=== PATIENT | male | born 1950 | race Caucasian/White ===

== ENCOUNTER 2021-05-09 10:21 | Day surgery (SDC) | payer MEDICARE, OTHER ==
[2021-05-06 11:10] VITALS: BMI 39.4
[2021-05-09] MEDS ORDERED: Lidocaine 1% MPF 2 ML VIAL ONE (10:40)
[2021-05-09] MEDS ORDERED: Oxymetazoline HCl 0.05% ( 15 ML ) ONE (10:40)
[2021-05-09] MEDS ORDERED: Rocuronium Bromide 10 MG/ML (10ML VIAL) ONE (12:47)
[2021-05-09] MEDS ORDERED: Dexamethasone 20 MG/5 ML VIAL ONE (12:47)
[2021-05-09] MEDS ORDERED: Lidocaine 1% PF 5 ML VIAL ONE (12:47)
[2021-05-09] MEDS ORDERED: Midazolam HCl 2 mg/2 ml Vial ONE (12:47)
[2021-05-09] MEDS ORDERED: Ondansetron PF 4 MG/2 ML Vial ONE (12:47)
[2021-05-09] MEDS ORDERED: Fentanyl 100 MCG/2 ML VIAL ONE ×2 (12:47→14:42)
[2021-05-09] MEDS ORDERED: PROPOFOL 20 ML ONE ×2 (12:47→14:00)
[2021-05-09] MEDS ORDERED: Lidocaine 1% w/Epinephrine 1:100K 20 ML VIAL ONE (13:22)
[2021-05-09] MEDS ORDERED: Mupirocin 2% Ointment 22 GM Tube ONE (13:22)
[2021-05-09] MEDS ORDERED: Glycopyrrolate 0.2 MG/ML 5 ML SYRINGE ONE (13:58)
[2021-05-09] MEDS ORDERED: Meperidine HCl/PF 25 MG/ML VIAL ONE (14:00)
[2021-05-09] MEDS ORDERED: HYDROcodone/Acetaminophen 5/325 mg Tablet ONE (15:24)
== END 2021-05-09 16:15 | disposition home or self-care (01) ==
LOC: CSHSDC 10:21
PROVIDERS: ATTEND Otolaryngology Plastic Surgery within the Head & Neck
DX: J33.9 Nasal polyp, unspecified (principal); J32.0 Chronic maxillary sinusitis; J34.2 Deviated nasal septum; J34.3 Hypertrophy of nasal turbinates; J34.89 Other specified disorders of nose and nasal sinuses
CPT/HCPCS: 88304; J1100; J2175; J2250; J2405; J2704; J3010